=== PATIENT | male | born 2000 | race Caucasian/White ===

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

== ENCOUNTER 2020-12-22 01:02 | Emergency (ER) | payer OTHER ==
[2020-12-22] MEDS ORDERED: HYDROcod/ACETAM 5/325 MG TABLET PO STA (01:40)
[2020-12-22] MEDS ORDERED: KETOROLAC 30 MG/ML VIAL IM STA (01:40)
[2020-12-22] MEDS ORDERED: HYDROcod/ACET 5/325 Prepack 4 PO STA (02:50)
--- NOTE | 2020-12-22 02:50 | ED Physician Documentation ---
PD HPI CHEST PAIN - Stated complaint Stated Complaint: L FLANK INJ - Chief complaint Chief Complaint: General - History obtained from History obtained from: Patient - History of Present Illness Timing - onset: How many hours ago (1), Today Timing - onset during: Exertion (he was doing curls and weight lifts, and soon after developed left anterolateral chest pain, sharp, hurting to breath, but not dyspnea per se.) Timing - duration: Hours (1) Timing - details: Abrupt onset, Still present, Waxing and waning Quality: Aching, Sharp, Pain Location: Left chest (below left breast) Associated symptoms: No: Shortness of air, Nausea, Vomiting, Feeling faint / dizzy, Palpitations Similar symptoms before: Has not had sx before Recently seen: Not recently seen Review of Systems Constitutional: denies: Fever, Chills Nose: denies: Rhinorrhea / runny nose, Congestion Throat: denies: Sore throat Respiratory: denies: Cough Skin: denies: Rash, Lesions Musculoskeletal: denies: Neck pain, Back pain PD PAST MEDICAL HISTORY - Past Medical History Past Medical History: Yes Cardiovascular: None Respiratory: None Endocrine/Autoimmune: None Psych: ADD/ADHD - Past Surgical History Past Surgical History: Yes HEENT: Tonsil/Adenoidectomy - Present Medications Home Medications: Ambulatory Orders Medication Instructions Recorded Confirmed Albuterol Sulfate [Proventil Hfa 1 - 2 puffs INH Q4H PRN #1 inhaler 09/11/17 Inhaler] Inhaler, Assist Devices 1 each MC PRN PRN #1 spacer 09/11/17 [Aerochamber Mini] - Allergies Allergies/Adverse Reactions: Allergies Allergy/AdvReac Type Severity Reaction Status Date / Time amoxicillin AdvReac Unknown Rash Verified 12/22/20 01:41 - Social History Does the pt smoke?: No Smoking Status: Never smoker Does the pt drink ETOH?: No Does the pt have substance abuse?: No - Family History Family history: denies: CAD, Sudden , Venous thromboembolism - Immunizations Immunizations are current?: Yes - POLST Patient has POLST: No PD ED PE NORMAL - Vitals Vital signs reviewed: Yes - General General: Alert and oriented X 3, Well developed/nourished, Other (appears in pain, holding left anterolateral chestwall. ) - Neck Neck: Supple, no meningeal sign, No adenopathy - Cardiac Cardiac: RRR, No murmur - Respiratory Respiratory: Clear bilaterally, Other (some chestwall tenderness left anterior axillary line without deformity, rash, crepitance. ) - Abdomen Abdomen: Normal bowel sounds, Soft, Non tender, Non distended - Derm Derm: Normal color, Warm and dry - Extremities Extremities: No edema, No calf tenderness / cord - Neuro Neuro: Alert and oriented X 3, No motor deficit, Normal speech Results - Vitals Vitals: Vital Signs - 24 hr 12/22/20 12/22/20 01:10 03:01 Temperature 36.2 C L 36.7 C Heart Rate 99 69 Respiratory 18 18 Rate Blood Pressure 136/11 H 137/87 H O2 Saturation 97 99 Oxygen O2 Source Room air - Rads (name of study) left ribs with Chest Radiology: Prelim report reviewed (no acute process), See rad report PD MEDICAL DECISION MAKING - ED course Complexity details: reviewed results, re-evaluated patient (improved enough with IV meds.), considered differential, d/w patient Departure - Departure Disposition: 01 Home, Self Care Clinical Impression: Chest wall muscle strain Qualifiers: Encounter type: initial encounter Qualified Code(s): S29.011A - Strain of muscle and tendon of front wall of thorax, initial encounter Condition: Stable Record reviewed to determine appropriate education?: Yes Instructions: ED Strain Chest Wall Ch Comments: Your chest x-ray appears normal without any signs of obvious rib deformity and no pneumothorax or collapsed lung. Presume a strain of the chest wall muscle. Use anti-inflammatory such as ibuprofen 600 mg 3 times a day with food. To that add Tylenol or hydrocodone if needed for pain. I would presume this to improve over 2 to 3 days. Activity as tolerated during that time. Recheck if not better in that timeframe and return if worsening Discharge Date/Time: 12/22/20 03:10
[2020-12-22 03:02] VITALS: BP 137/87
--- NOTE | 2020-12-22 10:44 | XRAY Report ---
PROCEDURE: Ribs w/PA Chest LT INDICATIONS: left pectoral/chest pain with weight lifting TECHNIQUE: 3 views of the left ribs were acquired, along with a single view chest. COMPARISON: Correlation is made with chest and rib plain films, 04/09/2013 FINDINGS: Surgical changes and devices: None. Bones and chest wall: No fractures or dislocations. No suspicious bony lesions. Overlying soft tis sues appear unremarkable. Lungs and pleura: No pleural effusions or pneumothorax. Lungs appear clear. Mediastinum: Mediastinal contours appear normal. Heart size is normal. IMPRESSION: Normal rib plain films. Normal chest, without pneumothorax. Note: No significant discrepancy from the preliminary report. Reviewed by: Ananda Randhawa MD on 12/22/2020 9:43 AM JEANNE Approved by: Ananda Randhawa MD on 12/22/2020 9:43 AM JEANNE Station ID: [id number]
== END 2020-12-22 03:10 | disposition home or self-care (01) ==
LOC: ED 01:02
DX: S29.011A Strain of muscle and tendon of front wall of thorax, initial encounter (principal); X50.0XXA Overexertion from strenuous movement or load, initial encounter; Y93.B9 Activity, other involving muscle strengthening exercises
CPT/HCPCS: 71101; 96372; 99283; 99284; A9270

== ENCOUNTER 2023-06-08 11:21 | Outpatient (CLI) | payer BC ==
[2023-06-08 18:03] LABS: CALCIUM 9.8 mg/dL (8.5-10.3); CREATININE 1.1 mg/dL (0.6-1.3); POTASSIUM 3.9 mmol/L (3.5-4.5)
[2023-06-08 18:20] LABS: THYROID STIMULATING HORMONE 1.2 uIU/mL (0.34-5.60)
== END 2023-06-08 11:22 | disposition home or self-care (01) ==
LOC: LAB.N 11:21
PROVIDERS: ATTEND Family Medicine
DX: R03.0 Elevated blood-pressure reading, without diagnosis of hypertension (principal)
CPT/HCPCS: 36415; 80048; 84443

== ENCOUNTER 2023-06-14 17:33 | Outpatient (CLI) | payer BC | END 2023-06-14 17:34 | disposition critical access hospital (66) | LOC: EMS 17:33 | DX: R07.89 Other chest pain (principal); R42 Dizziness and giddiness; R00.0 Tachycardia, unspecified | CPT/HCPCS: A0425; A0427 ==

== ENCOUNTER 2023-06-14 17:56 | Emergency (ER) | payer BC ==
--- NOTE | 2023-06-14 18:12 | ED Physician Documentation ---
PD HPI CHEST PAIN - Stated complaint Stated Complaint: CHEST DISCOMFORT - Chief complaint Chief Complaint: Cardiac - History obtained from History obtained from: Patient - Additional information Additional information: 22-year-old male with no reported past medical history presents by EMS for left- sided chest tightness while working out. EMS administered aspirin and nitroglycerin. EKG showed sinus tachycardia without acute ischemic findings. On arrival patient stated he was pain free. Grandmother with hx of heart disease, no other family members with CAD. Never smoker. Review of Systems Constitutional: denies: Fever, Chills Cardiac: reports: Chest pain / pressure. denies: Palpitations Respiratory: denies: Dyspnea, Cough, Wheezing GI: denies: Abdominal Pain, Nausea, Vomiting PD PAST MEDICAL HISTORY - Past Medical History Cardiovascular: None Respiratory: None Endocrine/Autoimmune: None Psych: ADD/ADHD - Past Surgical History Past Surgical History: Yes HEENT: Tonsil/Adenoidectomy - Present Medications Home Medications: Ambulatory Orders Medication Instructions Recorded Confirmed Albuterol Sulfate [Proventil Hfa 1 - 2 puffs INH Q4H PRN #1 inhaler 09/11/17 06/14/23 Inhaler] Inhaler, Assist Devices 1 each MC PRN PRN #1 spacer 09/11/17 06/14/23 [Aerochamber Mini] - Allergies Allergies/Adverse Reactions: Allergies Allergy/AdvReac Type Severity Reaction Status Date / Time amoxicillin AdvReac Unknown Rash Verified 06/14/23 19:19 - Social History Does the pt smoke?: No Smoking Status: Never smoker Does the pt drink ETOH?: No Does the pt have substance abuse?: No - Immunizations Immunizations are current?: Yes - POLST Patient has POLST: No PD ED PE NORMAL - Vitals Vital signs reviewed: Yes - General General: Alert and oriented X 3, No acute distress, Well developed/nourished - HEENT HEENT: Atraumatic - Neck Neck: Supple, no meningeal sign - Cardiac Cardiac: RRR, No murmur, Strong equal pulses - Respiratory Respiratory: No respiratory distress, Clear bilaterally - Abdomen Abdomen: Soft, Non tender, Non distended - Derm Derm: Normal color, Warm and dry, No rash - Extremities Extremities: No deformity, No tenderness to palpate, Normal ROM s pain - Neuro Neuro: Alert and oriented X 3, 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 Relevant findings are: NO STEMI. PROBABLE NV PROLONGATION Rate: Rate (enter#) (91) Rhythm: NSR [place]: Normal Intervals: Prolonged NV Ischemia: ST elevation c/w repol - Labs Labs: Laboratory Tests 06/14/23 06/14/23 06/14/23 18:35 18:35 18:35 WBC 7.7 RBC 5.44 Hgb 16.0 Hct 49.3 MCV 90.6 MCH 29.4 MCHC 32.5 RDW 12.5 Plt Count 220 MPV 10.2 Neut # (Auto) 5.2 Lymph # (Auto) 1.4 L Hughes # (Auto) 0.8 Eos # (Auto) 0.1 Baso # (Auto) 0.0 Absolute Nucleated RBC 0.00 Nucleated RBC % 0.0 Sodium 139 Potassium 3.7 Chloride 103 Carbon Dioxide 30 Anion Gap 6.0 BUN 14 Creatinine 1.5 H Estimated GFR (MDRD) 59 L Glucose 98 Calcium 9.5 Total Bilirubin 0.5 AST 19 ALT 18 Alkaline Phosphatase 65 Troponin I High Sens 3.0 Total Protein 6.7 Albumin 4.6 Globulin 2.1 Albumin/Globulin Ratio 2.2 06/14/23 20:05 WBC RBC Hgb Hct MCV MCH MCHC RDW Plt Count MPV Neut # (Auto) Lymph # (Auto) Hughes # (Auto) Eos # (Auto) Baso # (Auto) Absolute Nucleated RBC Nucleated RBC % Sodium Potassium Chloride Carbon Dioxide Anion Gap BUN Creatinine Estimated GFR (MDRD) Glucose Calcium Total Bilirubin AST ALT Alkaline Phosphatase Troponin I High Sens 3.0 Total Protein Albumin Globulin Albumin/Globulin Ratio PD Medical Decision Making - ED course Complexity details: reviewed results, re-evaluated patient, considered differential, d/w patient ED course: Chest tightness, now resolved. Heart score 1 (grandmother with heart disease). CXR negative for acute findings. Laboratory work pending. Care of patient signed to Dr. Iglesias at 1900. Departure - Departure Disposition: 01 Home, Self Care Clinical Impression: Chest pain Condition: Stable Instructions: ED Chest Pain NonCardiac Follow-Up: Brooklyn Bravo MD [Primary Care Provider] - Comments: Your chest x-ray is clear. Your EKG shows what is called early repolarization which is common for your age and body stature. Your blood test called troponin is negative on both tests. This signifies no signs of heart muscle injury such as heart attack or inflammation etc. The cause of your pain is not clear. Presume some musculoskeletal type pain. I would suggest using some ibuprofen or naproxen type medications if needed for discomfort if you have recurring pains. Recheck or follow-up if you have recurring episodes with activity or exertion over the near future. If so other testing may be appropriate. If you do not have any recurring episodes then not to worry. Forms: PCP List Discharge Date/Time: 06/14/23 20:46
--- NOTE | 2023-06-14 18:21 | XRAY Report ---
PROCEDURE: Chest 1 View X-Ray INDICATIONS: CP TECHNIQUE: One view of the chest was acquired. COMPARISON: None. FINDINGS: Surgical changes and devices: None. Lungs and pleura: No pleural effusions or pneumothorax. Lungs are clear. Mediastinum: Mediastinal contours appear normal. Heart size is normal. Bones and chest wall: No suspicious bony lesions. Overlying soft tissues appear unremarkable. IMPRESSION: No acute cardiopulmonary process. Reviewed by: Lucia Clark MD on 06/14/2023 6:20 PM [facility] [[email or web address]] Approved by: Lucia Clark MD on 06/14/2023 6:20 PM [facility] [[email or web address]] Station ID: [id number]
[2023-06-14 18:41] LABS: BASOPHILS % (AUTO) 0.5 %; EOSINOPHILS # (AUTO) 0.1 10^3/uL (0.0-0.7); EOSINOPHILS % (AUTO) 1.7 %; HCT - HEMATOCRIT 49.3 % (42.0-52.0); LYMPHOCYTES # (AUTO) 1.4 10^3/uL (1.5-3.5); LYMPHOCYTES % (AUTO) 18.8 %; MEAN CORPUSCULAR HEMOGLOBIN 29.4 pg (27.0-31.0); MEAN CORPUSCULAR HGB CONC 32.5 g/dL (32.0-36.0); MEAN CORPUSCULAR VOLUME 90.6 fL (80.0-94.0); MEAN PLATELET VOLUME 10.2 fL (7.4-11.4); MONOCYTES # (AUTO) 0.8 10^3/uL (0.0-1.0); MONOCYTES % (AUTO) 10.7 %; NEUTROPHILS # (AUTO) 5.2 10^3/uL (1.5-6.6); NEUTROPHILS % (AUTO) 68.2 %; PLT - PLATELET COUNT 220 10^3/uL (130-450); RED BLOOD COUNT 5.44 10^6/uL (4.70-6.10); RED CELL DISTRIBUTION WIDTH 12.5 % (12.0-15.0); WHITE BLOOD COUNT 7.7 x10^3/uL (4.8-10.8)
[2023-06-14 18:58] LABS: ALBUMIN 4.6 g/dL (3.2-5.5); ALBUMIN/GLOBULIN RATIO 2.2 (1.0-2.2); BILIRUBIN,TOTAL 0.5 mg/dL (0.2-1.0); CALCIUM 9.5 mg/dL (8.5-10.3); CREATININE 1.5 mg/dL (0.6-1.3); POTASSIUM 3.7 mmol/L (3.5-4.5); TOTAL PROTEIN 6.7 g/dL (6.4-8.9)
--- NOTE | 2023-06-14 19:56 | ED Physician Documentation ---
ED Addendum - Addendum Addendum: 06/14/23 19:54 The patient is without any pain at this time. He had had it briefly while working out and was a sharp fish type pain in the anterior chest. His EKG shows likely early repolarization mainly inferior leads. Other consideration may be inflammatory such as pericardial though he had not had any recent viral type symptoms and is not having exertional shortness of breath. His oxygenation is good. No abnormalities on PERC scoring. Chest x-ray did not show any infiltrat e effusion no pneumothorax. Initial troponin was well in the normal limits. Onset of time to the pain starting until blood draw was only about an hour and a half. We can recheck the troponin and make sure its not showing any acute rise.
[2023-06-14 20:18] VITALS: BP 132/70; O2SAT 97
== END 2023-06-14 20:46 | disposition home or self-care (01) ==
LOC: EDUNIT# → ED 17:56
DX: R07.89 Other chest pain (principal)
CPT/HCPCS: 36415; 80053; 84484; 85025; 93005; 99283; 99284

== ENCOUNTER 2023-07-14 07:46 | Outpatient (CLI) | payer BC ==
--- NOTE | 2023-07-14 08:20 | CARDIAC PROCEDURE NOTE ---
Stress Test Report Service Date: 07/14/23 Service Time: 08:00 Ordering Provider: Yasmin Rodriguez PA-C Indication for Test: Assess chest discomfort. 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 The workout is biased toward isometrics with significant weight lifting and following the onset of symptoms he had to terminate that workout. 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 Troponin was negative times two. He was placed on administrative leave pending further evaluation. He has remained active and has been able to resume his workouts without experiencing recurrent symptoms. Cardiac Risk Factors: Notable for family history of a paternal great uncle with sudden attributed to "heart attack" without other information available; no history of hypertension, diabetes, hyperlipidemia or tobacco smoking ever. Type of Stress Test: ETT with Echocardiography Procedure: -Exercise Treadmill Test- After signing informed consent, the patient underwent echo imaging at rest and then performed treadmill exercise using a Shahriar protocol. The patient exercised for 10 minutes 21 seconds and achieved a peak heart rate of 194 (97 percent predicted maximum heart rate for age), and an estimated workload of 12.4 METS. The test was terminated due to fatigue/shortness of breath. Resting heart rate: 95 Peak heart rate: 194 Normal response to exercise. Resting BP: 120/71 Peak BP: 200/63 Normal BP response to exercise. Rhythm during exercise: Sinus rhythm throughout without ectopy. Symptoms: He described no chest pressure/discomfort/pain whatsoever. EKG at rest showed normal sinus rhythm with first-degree AV block (UT 216 ms), mild generalized ST elevation (probable normal juvenile early repolarization pattern) and rSr' pattern in V1, consistent with mild RV conduction delay. EKG at peak stress showed no ischemia by EKG criteria. In Recovery he described brief lightheadedness immediately upon reclining, with BP recorded at 112/54, followed by symptom resolution with next BP 168/43 and s erial decrease to baseline thereafter; heart rate dropped normally initially, but remained elevated above baseline (HR was 106, BP 117/53 at 11:00). Echo imaging, performed at rest and with stress, will be reported separately. IRanjith MD, was present throughout this treadmill stress study and supervised it in its entirety. Summary: 1) Exercise tolerance significantly below average for age and sex, as evidenced by GAIL of 31%. 2) Abnormal resting EKG. 3) Adequate level of exercise was achieved on this treadmill stress test. 4) Normal BP response to exercise. 5) No ischemic changes by EKG criteria were seen at peak stress. 6) Echo image interpretation reveals normal left ventricular size and wall thickness, with borderline reduced systolic function and abnormal global longitudinal strain (GLS -13%). With exercise there was appropriate hyperdynamic augmentation of all segments, indicating no evidence of prior infarct or inducible ischemia. No significant valvular abnormality or elevation of estimated pulmonary artery systolic pressure seen on screening study. See separate report for more details. 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 2) Following completion of the study, I was able to contact his primary provider, Dr. Brooklyn Bravo, to review these results. I am recommending that Jesse be further evaluated with cardiac magnetic magnetic resonance imaging and possible formal cardiology consultation at the [facility], given his high risk occupation. Dr. Bravo and I will work to arrange for this further evaluation while keeping Jesse on continued administrative leave until there is clearer definition of his condition.
== END 2023-07-14 07:47 | disposition home or self-care (01) ==
LOC: DI 07:46
PROVIDERS: ATTEND Physician Assistant
DX: R07.89 Other chest pain (principal); Z82.41 Family history of sudden cardiac death
CPT/HCPCS: 93350

== ENCOUNTER 2023-11-21 10:42 | Outpatient (CLI) | payer OTHER, BC ==
--- NOTE | 2023-11-21 17:43 | XRAY Report ---
PROCEDURE: Lumbar Spine 2-3V INDICATIONS: STRAIN OF MUSCLE, FASCIA AND TENDON OF LOWER BACK TECHNIQUE: 3 views of the lumbar spine were acquired. COMPARISON: None. FINDINGS: Bones: 5 [id number] vertebrae are present. There is trace retrolisthesis of L2 on L3, L3 on L4 . Minimal to mild disc space narrowing at L2-3, L3-4 with foraminal narrowing minimal at these levels . No vertebral body compression fractures. No suspicious bony lesions. Soft tissues: Overlying bowel gas pattern is normal. No suspicious soft tissue calcifications. IMPRESSION: Minimal disc and foraminal narrowing. Reviewed by: Lucia Clark MD on 11/21/2023 5:42 PM PDT Approved by: Lucia Clark MD on 11/21/2023 5:42 PM PDT Station ID: [id number]
--- NOTE | 2023-11-21 17:46 | XRAY Report ---
PROCEDURE: Cervical Spine 2-3V INDICATIONS: STRAIN OF MUSCLE,FASCIA AND TENDON AT NECK TECHNIQUE: 3 view(s) of the cervical spine were acquired. COMPARISON: CT cervical spine 05/07/2013 FINDINGS: Bones: No fractures or dislocations to the C7-T1 level. The lateral masses of C1 appear intact on t he odontoid view. No suspicious bony lesions. There is appearance of straightening and minimal reve rsal cervical curvature with apex at C5-6. Soft tissues: No prevertebral soft tissue swelling. IMPRESSION: Cervical straightening/minimal reversal cervical curvature. Reviewed by: Lucia Clark MD on 11/21/2023 5:44 PM PDT Approved by: Lucia Clark MD on 11/21/2023 5:44 PM PDT Station ID: [id number]
== END 2023-11-21 10:43 | disposition home or self-care (01) ==
LOC: DI 10:42
PROVIDERS: ATTEND Physician Assistant Medical
DX: S16.1XXA Strain of muscle, fascia and tendon at neck level, initial encounter (principal); S39.012A Strain of muscle, fascia and tendon of lower back, initial encounter; M47.816 Spondylosis without myelopathy or radiculopathy, lumbar region; M48.061 Spinal stenosis, lumbar region without neurogenic claudication